=== PATIENT | male | born 1970 | race Asian ===

== ENCOUNTER 2018-11-10 15:11 | Outpatient (CLI) | payer OTHER ==
[2018-11-11 08:07] LABS: HEPATITIS B CORE AB, IgM Negative (Negative); HEPATITIS B CORE AB, TOTAL Negative (Negative); HEPATITIS B SURFACE AG Negative (Negative); HEPATITIS C VIRUS AB <0.1 s/co ratio (0.0-0.9)
== END 2018-11-10 19:16 | disposition home or self-care (01) ==
LOC: SLB 15:11
PROVIDERS: ATTEND Internal Medicine Hospice and Palliative Medicine
DX: S60.949A Unspecified superficial injury of unspecified finger, initial encounter (principal); Z77.21 Contact with and (suspected) exposure to potentially hazardous body fluids; W46.0XXA Contact with hypodermic needle, initial encounter; Y93.F9 Activity, other caregiving; Y92.239 Unspecified place in hospital as the place of occurrence of the external cause; Y99.0 Civilian activity done for income or pay
CPT/HCPCS: 36415; 86704; 86705; 86706; 86803; 87340